=== PATIENT | male | born 1990 | race Hispanic/Latino ===

== ENCOUNTER 2020-12-16 09:38 | Inpatient (IN) | payer SELFPAY ==
[2020-12-16] MEDS ORDERED: Fentanyl 100 MCG/2 ML VIAL ONE ×2 (10:03→12:07)
[2020-12-16] MEDS ORDERED: INSULIN REGULAR IN 0.9 % NACL 100 UNIT/100 ML BAG ONE (10:11)
[2020-12-16 10:27] LABS: Actual Bicarbonate (HCO3v) 18 mEq/L (22-28); Analyzer IN Cardio ER; Base Excess -7.4 mEq/L (-2.0 to +3.0); Calcium, Ionized (venous) 1.02 mmol/L (1.16-1.32); Chloride (VBG) 104 mmol/L (98-106); Hemoglobin (Hb) 15.6 g/dL (13.2-17.3); Potassium (VBG) 4.19 mmol/L (3.70-5.30); Sodium 135.3 mmol/L (133-146)
[2020-12-16] MEDS ORDERED: NS 0.9% w/ 20 MEQ KCL 1,000 ML IV PRN ×2 (10:30)
[2020-12-16] MEDS ORDERED: Sodium Chloride 0.9% 1,000 ML IV PRN ×4 (10:30)
[2020-12-16] MEDS ORDERED: Electrolyte Replacement Protocol 1 EACH IVPB ONE (10:30)
[2020-12-16] MEDS ORDERED: Ondansetron PF 4 MG/2 ML Vial IVP PRN (10:35)
[2020-12-16] MEDS ORDERED: Acetaminophen 325 MG TAB PO PRN (10:35)
[2020-12-16] MEDS ORDERED: Calcium Carbonate 500 MG ChewTAB PO PRN (10:35)
[2020-12-16] MEDS ORDERED: Ondansetron ODT 4 MG TAB PO PRN (10:35)
[2020-12-16] MEDS ORDERED: NS 0.9% w/ 20 MEQ KCL 1,000 ML ONE ×2 (10:51→13:19)
[2020-12-16 10:57] LABS: Anion Gap 22 mmol/L (10-20); BUN (Urea Nitrogen) 6 mg/dL (8.9-20.6); Calc. Creatinine Clearance 0 mL/min (70-130); Carbon Dioxide 12 mmol/L (22-29); Chloride 101 mmol/L (98-107); Glucose 337 mg/dL (70-105); Sodium 131 mmol/L (136-145)
[2020-12-16 11:19] LABS: Hemoglobin A1c 7.8 % (4.0-6.0)
[2020-12-16 11:28] LABS: Magnesium 1.5 mg/dL (1.6-2.6)
[2020-12-16] MEDS ORDERED: Potassium Phosphate 15 MMOL in Sodium Chloride 0.9% 250 ML 250 ML IVPB SCH (14:00)
[2020-12-16] MEDS ORDERED: Magnesium Sulfate 4 GM in Sodium Chloride 0.9% 250 ML 250 ML IVPB SCH (14:00)
[2020-12-16] MEDS ORDERED: Electrolyte Replacement Protocol FS PRN (14:00)
[2020-12-16 14:01] LABS: Glucose 284 mg/dL (70-105)
[2020-12-16 14:11] LABS: Lactic Acid 1.8 mmol/L (0.5-2.2)
[2020-12-16 14:14] LABS: Anion Gap 17 mmol/L (10-20); BUN (Urea Nitrogen) 7 mg/dL (8.9-20.6); Calc. Creatinine Clearance 0 mL/min (70-130); Calcium 7.8 mg/dL (7.8-10.44); Carbon Dioxide 13 mmol/L (22-29); Chloride 103 mmol/L (98-107); Glucose 264 mg/dL (70-105); Potassium 4.3 mmol/L (3.5-5.1); Sodium 129 mmol/L (136-145)
[2020-12-16] MEDS ORDERED: Morphine 2 MG/ML VIAL SLOW IVP PRN (14:25)
[2020-12-16] MEDS ORDERED: Morphine 2 MG/ML VIAL ONE (14:32)
[2020-12-16 15:16] VITALS: BMI 34.4
[2020-12-16] MEDS: D5 1/2 NS w/20 mEq KCL 1,000 ML IV PRN (16:05)
[2020-12-16 17:06] LABS: Glucose 264 mg/dL (70-105)
[2020-12-16 18:27] LABS: Glucose 268 mg/dL (70-105)
[2020-12-16 18:32] LABS: BUN (Urea Nitrogen) 5 mg/dL (8.9-20.6); Calc. Creatinine Clearance 202 mL/min (70-130); Calcium 7.8 mg/dL (7.8-10.44); Chloride 104 mmol/L (98-107); Glucose 267 mg/dL (70-105); Potassium 4.1 mmol/L (3.5-5.1); Sodium 130 mmol/L (136-145)
[2020-12-16 18:35] LABS: Carbon Dioxide Less than 8 mmol/L (22-29)
[2020-12-16] MEDS ORDERED: Meropenem 1 GM in Sodium Chloride 0.9% 100 ML IVPB SCH (18:45)
[2020-12-16] MEDS ORDERED: Sodium Bicarb 50 MEQ/50 ML Abboject 8.4% SYRINGE IVP SCH (18:45)
[2020-12-16] MEDS ORDERED: Sodium Bicarbonate Tab 325 MG TAB PO SCH (19:00)
[2020-12-16] MEDS ORDERED: Sodium Bicarbonate 150 MEQ in Dextrose 5% in Water 1,000 ML IV SCH ×2 (19:30→20:30)
[2020-12-16] MEDS ORDERED: MEROPENEM 1 GM/50 ML 1 GM in Premix Bag 1 BAG IVPB SCH (19:30)
[2020-12-16] MEDS ORDERED: Potassium Chloride 20 MEQ TAB PO SCH (19:30)
[2020-12-16] MEDS: Enoxaparin Sodium 40 MG/0.4 ML SYRINGE SC SCH (19:55)
[2020-12-16] MEDS: Famotidine 20 MG TAB PO SCH (19:55)
[2020-12-16] MEDS: Famotidine/PF 20 mg/2ml Vial SLOW IVP SCH (20:06)
[2020-12-16 20:07] LABS: Glucose 243 mg/dL (70-105)
[2020-12-16] MEDS: HUMULIN R 100 UNITS in Sodium Chloride 0.9% 100 ML IVPB SCH (20:22)
[2020-12-16 20:33] LABS: Glucose 234 mg/dL (70-105)
[2020-12-16 21:27] LABS: Glucose 195 mg/dL (70-105)
[2020-12-16 22:41] LABS: Anion Gap 19 mmol/L (10-20); BUN (Urea Nitrogen) 5 mg/dL (8.9-20.6); Calc. Creatinine Clearance 213 mL/min (70-130); Calcium 7.7 mg/dL (7.8-10.44); Carbon Dioxide 12 mmol/L (22-29); Chloride 104 mmol/L (98-107); Glucose 185 mg/dL (70-105); Potassium 3.9 mmol/L (3.5-5.1); Sodium 131 mmol/L (136-145)
[2020-12-16] MEDS ORDERED: Sodium Bicarb 50 MEQ/50 ML Abboject 8.4% SYRINGE IVP PRN (23:01)
[2020-12-16 23:35] LABS: Glucose 169 mg/dL (70-105)
[2020-12-16 23:38] LABS: Glucose 340 mg/dL (70-105)
[2020-12-16 23:49] LABS: SARS-CoV-2 PCR by NAA Not Detected (NotDetected)
[2020-12-17] MEDS: D5 1/2 NS w/20 mEq KCL 1,000 ML IV PRN ×2 (00:25→15:41)
[2020-12-17 00:32] LABS: Glucose 161 mg/dL (70-105)
[2020-12-17 01:33] LABS: Glucose 153 mg/dL (70-105)
[2020-12-17] MEDS: MEROPENEM 1 GM/50 ML 1 GM in Premix Bag 1 BAG IVPB SCH ×3 (03:34→19:29)
[2020-12-17] MEDS: HUMULIN R 100 UNITS in Sodium Chloride 0.9% 100 ML IVPB SCH ×2 (03:34→15:41)
[2020-12-17 03:55] LABS: Glucose 151 mg/dL (70-105)
[2020-12-17 04:29] LABS: Band 20 % (5-11); Eosinophils 1 % (0-10); Lymphocytes 8 % (21-51); MDiff Complete? YES; Monocytes 1 % (0-10); Neutrophil 70 % (42-75)
[2020-12-17 04:30] LABS: Hemoglobin 14.7 g/dL (14.0-18.0); Mean Corpuscular HGB CONC 35.9 g/dL (32.0-36.0); Mean Corpuscular Volume 89.2 fL (78.0-98.0); Platelet Count 159 thou/uL (130-400); Red Blood Cell (RBC) Count 4.58 mill/uL (4.70-6.10); White Blood Cell (WBC) Count 16.2 thou/uL (4.8-10.8)
[2020-12-17 04:56] LABS: Glucose 182 mg/dL (70-105)
[2020-12-17 05:21] LABS: Calcium 7.7 mg/dL (7.8-10.44); Glucose 181 mg/dL (70-105)
[2020-12-17 05:35] LABS: Magnesium 2.3 mg/dL (1.6-2.6)
[2020-12-17 05:41] LABS: Phosphorus 1.7 mg/dL (2.3-4.7)
[2020-12-17 05:52] LABS: Anion Gap 17 mmol/L (10-20); BUN (Urea Nitrogen) 5 mg/dL (8.9-20.6); Calc. Creatinine Clearance 204 mL/min (70-130); Carbon Dioxide 15 mmol/L (22-29); Chloride 101 mmol/L (98-107); Potassium 5.2 mmol/L (3.5-5.1); Sodium 128 mmol/L (136-145)
[2020-12-17] MEDS ORDERED: PHOS-NAK 1 PKT PACK PO SCH (06:00)
[2020-12-17] MEDS: Dextrose 5 %-0.45 % NaCl 1,000 ML IV PRN ×2 (06:01→10:12)
[2020-12-17] MEDS ORDERED: Sodium Phosphate 15 MMOL in Sodium Chloride 0.9% 250 ML 250 ML IVPB SCH (06:15)
[2020-12-17] MEDS ORDERED: Senokot S 8.6-50 MG TAB PO PRN (07:50)
[2020-12-17] MEDS ORDERED: Loperamide HCl 2 MG CAP PO PRN (07:50)
[2020-12-17] MEDS ORDERED: Bisacodyl 5 MG TAB PO PRN (07:50)
[2020-12-17] MEDS ORDERED: Loratadine 10 MG TAB PO PRN (07:50)
[2020-12-17] MEDS ORDERED: Cepastat Lozenges 1 LOZ PO PRN (07:50)
[2020-12-17] MEDS ORDERED: Sodium Chloride 0.65% Nasal 44 ML BOT EA NARE PRN (07:50)
[2020-12-17] MEDS ORDERED: GUAIFENESIN SF SOLN 200 MG/10 ML UDCUP PO PRN (07:50)
[2020-12-17] MEDS ORDERED: hydrALAZINE 20 MG/ML VIAL SLOW IVP PRN (07:50)
[2020-12-17] MEDS ORDERED: Temazepam 15 MG CAP PO PRN (07:50)
[2020-12-17] MEDS ORDERED: HYDROcodone/Acetaminophen 5/325 mg Tablet PO PRN (07:50)
[2020-12-17 08:00] LABS: Glucose 238 mg/dL (70-105)
[2020-12-17 08:03] LABS: Glucose 241 mg/dL (70-105)
[2020-12-17 08:20] LABS: Anion Gap 18 mmol/L (10-20); BUN (Urea Nitrogen) 4 mg/dL (8.9-20.6); Calc. Creatinine Clearance 206 mL/min (70-130); Calcium 7.8 mg/dL (7.8-10.44); Carbon Dioxide 14 mmol/L (22-29); Chloride 102 mmol/L (98-107); Glucose 231 mg/dL (70-105); Potassium 4.8 mmol/L (3.5-5.1); Sodium 129 mmol/L (136-145)
[2020-12-17 08:52] LABS: Actual Bicarbonate (HCO3v) 22 mEq/L (22-28); Base Excess -1.9 mEq/L (-2.0 to +3.0); Calcium, Ionized (venous) 0.98 mmol/L (1.16-1.32); Chloride (VBG) 102 mmol/L (98-106); Hemoglobin (Hb) 15.4 g/dL (13.2-17.3); Potassium (VBG) 5.67 mmol/L (3.70-5.30); Sodium 130.4 mmol/L (133-146); pH (venous) 7.43 (7.32-7.43)
[2020-12-17] MEDS: Famotidine/PF 20 mg/2ml Vial SLOW IVP SCH ×2 (10:01→19:38)
[2020-12-17] MEDS: Morphine 2 MG/ML VIAL SLOW IVP PRN ×3 (10:02→19:57)
[2020-12-17] MEDS: Famotidine 20 MG TAB PO SCH ×2 (10:21→20:02)
[2020-12-17 11:01] LABS: Chloride 102 mmol/L (98-107); Potassium 4.8 mmol/L (3.5-5.1); Sodium 129 mmol/L (136-145)
[2020-12-17 11:02] LABS: Glucose 214 mg/dL (70-105)
[2020-12-17 11:04] LABS: Anion Gap 18 mmol/L (10-20); Carbon Dioxide 14 mmol/L (22-29)
[2020-12-17 11:05] LABS: Calc. Creatinine Clearance 204 mL/min (70-130)
[2020-12-17 11:06] LABS: BUN (Urea Nitrogen) 4 mg/dL (8.9-20.6)
[2020-12-17 14:51] LABS: Anion Gap 15 mmol/L (10-20); BUN (Urea Nitrogen) 4 mg/dL (8.9-20.6); Calc. Creatinine Clearance 214 mL/min (70-130); Carbon Dioxide 16 mmol/L (22-29); Chloride 101 mmol/L (98-107); Glucose 183 mg/dL (70-105); Potassium 4.3 mmol/L (3.5-5.1); Sodium 128 mmol/L (136-145)
[2020-12-17 15:38] LABS: Actual Bicarbonate (HCO3v) 22 mEq/L (22-28); Base Excess -1.5 mEq/L (-2.0 to +3.0); Calcium, Ionized (venous) 1.07 mmol/L (1.16-1.32); Chloride (VBG) 103 mmol/L (98-106); Hemoglobin (Hb) 14.8 g/dL (13.2-17.3); Potassium (VBG) 3.85 mmol/L (3.70-5.30); Sodium 132.2 mmol/L (133-146); pH (venous) 7.44 (7.32-7.43)
[2020-12-17 18:24] LABS: Anion Gap 13 mmol/L (10-20); BUN (Urea Nitrogen) Less than 4 mg/dL (8.9-20.6); Calc. Creatinine Clearance 214 mL/min (70-130); Calcium 8.3 mg/dL (7.8-10.44); Carbon Dioxide 18 mmol/L (22-29); Chloride 102 mmol/L (98-107); Glucose 169 mg/dL (70-105); Sodium 129 mmol/L (136-145)
[2020-12-17] MEDS: D5 0.9% NS w/ 20 mEq KCl 1,000 ML IV SCH ×2 (19:28→23:10)
[2020-12-17] MEDS: Dextrose 5 % And 0.9 % NaCl 1,000 ML IV SCH ×2 (19:38→23:16)
[2020-12-17] MEDS: Enoxaparin Sodium 40 MG/0.4 ML SYRINGE SC SCH (20:02)
[2020-12-17 22:23] LABS: Anion Gap 14 mmol/L (10-20); BUN (Urea Nitrogen) Less than 4 mg/dL (8.9-20.6); Calc. Creatinine Clearance 214 mL/min (70-130); Calcium 8.2 mg/dL (7.8-10.44); Carbon Dioxide 18 mmol/L (22-29); Chloride 104 mmol/L (98-107); Glucose 163 mg/dL (70-105); Potassium 3.8 mmol/L (3.5-5.1); Sodium 132 mmol/L (136-145)
[2020-12-18] MEDS: HUMULIN R 100 UNITS in Sodium Chloride 0.9% 100 ML IVPB SCH (00:02)
[2020-12-18] MEDS: Dextrose 5 % And 0.9 % NaCl 1,000 ML IV SCH ×2 (03:05→08:05)
[2020-12-18] MEDS: MEROPENEM 1 GM/50 ML 1 GM in Premix Bag 1 BAG IVPB SCH (03:05)
[2020-12-18] MEDS: D5 0.9% NS w/ 20 mEq KCl 1,000 ML IV SCH ×2 (03:05→08:04)
[2020-12-18 03:40] LABS: #Eosinphils 0.1 thou/uL (0.0-0.7); #Lymphocytes 1.4 thou/uL (1.20-3.40); #Monocytes 0.6 thou/uL (0.11-0.59); #Neutrophils 10.3 thou/uL (1.40-6.50); %Basophils 0.1 % (0.0-1.0); %Eosinophils 0.9 % (0.0-10.0); %Lymphocytes 11.3 % (21.0-51.0); %Monocytes 4.9 % (0.0-10.0); %Neutrophils 82.9 % (42.0-75.0); Hemoglobin 13.5 g/dL (14.0-18.0); Mean Corpuscular HGB CONC 34.1 g/dL (32.0-36.0); Mean Corpuscular Hemoglobin 31.2 pg (27.0-31.0); Mean Corpuscular Volume 91.3 fL (78.0-98.0); Platelet Count 123 thou/uL (130-400); RBC Distribution Width 12.1 % (11.5-14.5); Red Blood Cell (RBC) Count 4.33 mill/uL (4.70-6.10); White Blood Cell (WBC) Count 12.4 thou/uL (4.8-10.8)
[2020-12-18 03:42] LABS: Magnesium 1.9 mg/dL (1.6-2.6)
[2020-12-18 03:46] LABS: Phosphorus 1.8 mg/dL (2.3-4.7)
[2020-12-18 03:50] LABS: ALT (SGPT) 31 U/L (8-55); AST (SGOT) 18 U/L (5-34); Albumin 3.1 g/dL (3.5-5.0); Alkaline Phosphatase 76 U/L (40-110); Bilirubin, Direct 0.3 mg/dL (0.1-0.3); Protein, Total 6.4 g/dL (6.0-8.3)
[2020-12-18 03:50] LABS: Lipase 85 U/L (8-78); Triglycerides 497 mg/dL (Less than 150)
[2020-12-18] MEDS ORDERED: Magnesium 2 GM/50 ML 2 GM in Premix Bag 1 BAG IVPB SCH (04:15)
[2020-12-18] MEDS ORDERED: Potassium Phosphate 15 MMOL in Sodium Chloride 0.9% 250 ML 250 ML IVPB SCH (05:00)
[2020-12-18] MEDS ORDERED: Insulin Regular 300 UNITS/3 ML VIAL SC PRN (08:35)
[2020-12-18] MEDS ORDERED: Dextrose 50% Abboject 50 ML SYRINGE SLOW IVP PRN (08:35)
[2020-12-18] MEDS ORDERED: Dextrose 5% in Water 1,000 ML IV PRN (08:35)
[2020-12-18] MEDS ORDERED: Insulin Glargine 10 UNITS in Pre-Filled Syringe 1 EACH SC SCH (09:00)
[2020-12-18] MEDS: Lantus 1000 UNITS/10 ML VIAL SC SCH (09:50)
[2020-12-18] MEDS: Famotidine 20 MG TAB PO SCH ×2 (09:57→20:10)
[2020-12-18] MEDS: 1/2 NS w/KCL 20 mEq 1,000 ML IV SCH ×2 (13:16→22:42)
[2020-12-18] MEDS: Gemfibrozil 600 MG TAB PO SCH (15:50)
[2020-12-18] MEDS: Enoxaparin Sodium 40 MG/0.4 ML SYRINGE SC SCH (20:10)
[2020-12-19] MEDS: 1/2 NS w/KCL 20 mEq 1,000 ML IV SCH (05:21)
[2020-12-19 05:35] LABS: Anion Gap 19 mmol/L (10-20); BUN (Urea Nitrogen) 8 mg/dL (8.9-20.6); Calc. Creatinine Clearance 200 mL/min (70-130); Carbon Dioxide 15 mmol/L (22-29); Chloride 103 mmol/L (98-107); Glucose 194 mg/dL (70-105); Lipase 93 U/L (8-78); Magnesium 1.9 mg/dL (1.6-2.6); Sodium 133 mmol/L (136-145)
[2020-12-19] MEDS: Insulin Regular 300 UNITS/3 ML VIAL SC PRN ×3 (06:15→17:12)
[2020-12-19] MEDS ORDERED: 1/2 NS w/KCL 20 mEq 1,000 ML IV SCH (08:34)
[2020-12-19] MEDS: Gemfibrozil 600 MG TAB PO SCH ×2 (10:13→16:05)
[2020-12-19] MEDS: Sodium Bicarbonate Tab 325 MG TAB PO SCH ×3 (10:13→21:14)
[2020-12-19] MEDS: Lantus 1000 UNITS/10 ML VIAL SC SCH ×2 (10:14→21:15)
[2020-12-19] MEDS: Famotidine 20 MG TAB PO SCH ×2 (10:14→21:14)
[2020-12-20] MEDS: Insulin Regular 300 UNITS/3 ML VIAL SC PRN ×2 (05:10→13:21)
[2020-12-20 06:54] LABS: Anion Gap 19 mmol/L (10-20); BUN (Urea Nitrogen) 13 mg/dL (8.9-20.6); Calc. Creatinine Clearance 181 mL/min (70-130); Calcium 9.4 mg/dL (7.8-10.44); Carbon Dioxide 20 mmol/L (22-29); Chloride 100 mmol/L (98-107); Glucose 244 mg/dL (70-105); Magnesium 1.9 mg/dL (1.6-2.6); Phosphorus 4.5 mg/dL (2.3-4.7); Potassium 4.1 mmol/L (3.5-5.1); Sodium 135 mmol/L (136-145)
[2020-12-20] MEDS: Famotidine 20 MG TAB PO SCH (09:02)
[2020-12-20] MEDS: Gemfibrozil 600 MG TAB PO SCH (09:02)
[2020-12-20] MEDS: Sodium Bicarbonate Tab 325 MG TAB PO SCH (09:02)
[2020-12-20] MEDS: Lantus 1000 UNITS/10 ML VIAL SC SCH (09:03)
[2020-12-20 12:49] VITALS: BP 146/89; TEMP 97.9
== END 2020-12-20 15:30 | disposition home or self-care (01) | DRG 438 ==
LOC: ERS 09:38 → ERHOLD 10:42 → IMCU/EMU 15:24 → 2NO 12-18 16:56 → ONC 12-19 14:55
PROVIDERS: ADMIT Internal Medicine; ATTEND Internal Medicine
DX: K85.80 Other acute pancreatitis without necrosis or infection (principal); E11.10 Type 2 diabetes mellitus with ketoacidosis without coma; E87.1 Hypo-osmolality and hyponatremia; R65.10 Systemic inflammatory response syndrome (SIRS) of non-infectious origin without acute organ dysfunction; E78.1 Pure hyperglyceridemia; E86.0 Dehydration; E11.69 Type 2 diabetes mellitus with other specified complication; K76.0 Fatty (change of) liver, not elsewhere classified; E66.9 Obesity, unspecified; E83.42 Hypomagnesemia; E83.39 Other disorders of phosphorus metabolism; Z20.822 Contact with and (suspected) exposure to COVID-19; Z68.34 Body mass index [BMI] 34.0-34.9, adult
CPT/HCPCS: 36415; 36416; 80048; 80076; 82010; 82805; 83036; 83605; 83690; 83735; 83930; 84100; 84478; 84484; 85025; 86140; 93005; 94760; 96365; 96366; 96375; 96376; J1650; J1815; J2185; J2270; J3010; J3475; J3480; J3490; J7050; J7070; S0028; U0003; U0005

== ENCOUNTER 2023-12-14 11:03 | Inpatient (IN) | payer OTHER ==
[2023-12-14] MEDS ORDERED: Ketorolac Tromethamine 30 MG (1 mL) VIAL IVP PRN (11:19)
[2023-12-14] MEDS ORDERED: Bisacodyl 10 MG SUPP PR PRN (11:19)
[2023-12-14] MEDS ORDERED: Ondansetron PF 4 MG/2 ML Vial IVP PRN (11:19)
[2023-12-14] MEDS ORDERED: Bisacodyl 5 MG TAB PO PRN (11:19)
[2023-12-14] MEDS ORDERED: Senokot S 8.6-50 MG TAB PO PRN (11:19)
[2023-12-14] MEDS ORDERED: Acetaminophen 325 MG TAB PO PRN (11:19)
[2023-12-14] MEDS ORDERED: Dextrose 5% in Water 1,000 ML IV PRN (11:22)
[2023-12-14] MEDS ORDERED: Dextrose 50% Abboject 50 ML SYRINGE SLOW IVP PRN ×2 (11:22→14:30)
[2023-12-14] MEDS ORDERED: Glucagon 1 MG/ML KIT IM PRN (11:22)
[2023-12-14] MEDS ORDERED: Insulin Lispro 100 UNIT/ML 10 ML VIAL SC PRN ×2 (11:49→11:50)
[2023-12-14] MEDS: Morphine 2 MG/ML VIAL SLOW IVP PRN (12:14)
[2023-12-14] MEDS: Sodium Chloride 0.9% 1,000 ML IV SCH (12:15)
[2023-12-14 12:19] VITALS: BMI 33.0
[2023-12-14 13:32] VITALS: BP 154/97
[2023-12-14 13:34] LABS: Hemoglobin A1c 9.9 % (4.0-6.0)
[2023-12-14 14:12] LABS: Cardiac Risk 54.3 (Less than 4.5); Cholesterol 652 mg/dl (< 200 Desired); HDL Cholesterol 12 mg/dL (>60 Neg Risk); Triglycerides 4891 mg/dL (Less than 150)
[2023-12-14] MEDS ORDERED: NS 0.9% w/ 20 MEQ KCL 1,000 ML IV PRN ×2 (14:30)
[2023-12-14] MEDS ORDERED: Dextrose 5 %-0.45 % NaCl 1,000 ML IV PRN (14:30)
[2023-12-14] MEDS ORDERED: Sodium Chloride 0.9% 1,000 ML IV PRN ×4 (14:30)
[2023-12-14] MEDS ORDERED: Electrolyte Replacement Protocol 1 EACH IVPB PRN (14:30)
[2023-12-14 15:35] LABS: INR-International Normal Ratio 0.9; PTT 29.2 sec (22.9-36.1); Prothrombin Time 12.3 sec (12.0-14.7)
[2023-12-14 15:52] LABS: ALT (SGPT) 41 U/L (8-55); AST (SGOT) 26 U/L (5-34); Albumin 3.3 g/dL (3.5-5.0); Alkaline Phosphatase 79 U/L (40-110); Anion Gap 26 mmol/L (10-20); BUN (Urea Nitrogen) 6 mg/dL (8.9-20.6); Bilirubin, Total 1.3 mg/dL (0.2-1.2); Calc. Creatinine Clearance 157 mL/min (70-130); Calcium 8.2 mg/dL (7.8-10.44); Carbon Dioxide 10 mmol/L (22-29); Chloride 98 mmol/L (98-107); Estimated GFR 110; Globulin 5.9 g/dL (2.4-3.5); Glucose 245 mg/dL (70-105); Protein, Total 9.2 g/dL (6.0-8.3); Sodium 130 mmol/L (136-145)
[2023-12-14] MEDS: INSULIN REGULAR IN 0.9 % NACL 100 UNITS in Premix 1 BAG IVPB SCH (16:01)
[2023-12-14] MEDS: Gemfibrozil 600 MG TAB PO SCH (16:01)
[2023-12-14 16:14] LABS: Actual Bicarbonate (HCO3v) 24.5 mEq/L (22-28); Base Excess 0.6 mEq/L (-2.0 to +3.0); Calcium, Ionized (venous) 0.99 mmol/L (1.16-1.32); Chloride (VBG) 100 mmol/L (98-106); Hematocrit-VBG 45 % (42.0-52.0); Hemoglobin (Hb) 15.2 g/dL (13.2-17.3); Potassium (VBG) 3.76 mmol/L (3.70-5.30); Sodium 137 mmol/L (133-146); pH (venous) 7.435 (7.32-7.43)
[2023-12-14 16:15] LABS: Hematocrit 40.7 % (42.0-52.0); Hemoglobin 15.9 g/dL (14.0-18.0); Mean Corpuscular HGB CONC 39.1 g/dL (32.0-36.0); Mean Corpuscular Hemoglobin 34.2 pg (27.0-31.0); Mean Corpuscular Volume 87.5 fL (78.0-98.0); Mean Platelet Volume 11.5 fL (7.4-10.4); Platelet Count 176 10x3/uL (130-400); RBC Distribution Width 12.6 % (11.5-14.5); Red Blood Cell (RBC) Count 4.65 mill/uL (4.70-6.10)
[2023-12-14] MEDS: D5 1/2 NS w/20 mEq KCL 1,000 ML IV PRN (17:41)
[2023-12-14 19:04] LABS: Glucose 229 mg/dL (70-105)
[2023-12-14] MEDS ORDERED: fentaNYL 50 mcg/mL 1 mL Vial SLOW IVP SCH (19:55)
[2023-12-14 20:04] LABS: Base Excess -0.8 mEq/L (-2.0 to +3.0); Calcium, Ionized (venous) 0.99 mmol/L (1.16-1.32); Chloride (VBG) 100 mmol/L (98-106); Hematocrit-VBG 46 % (42.0-52.0); Hemoglobin (Hb) 15.7 g/dL (13.2-17.3); Potassium (VBG) 3.72 mmol/L (3.70-5.30); Sodium 136 mmol/L (133-146); pH (venous) 7.427 (7.32-7.43)
[2023-12-14 20:28] LABS: Lactic Acid 2.2 mmol/L (0.5-2.2)
[2023-12-14 20:36] LABS: Anion Gap 27 mmol/L (10-20); BUN (Urea Nitrogen) 7 mg/dL (8.9-20.6); Calc. Creatinine Clearance 172 mL/min (70-130); Calcium 7.8 mg/dL (7.8-10.44); Carbon Dioxide Less than 8 mmol/L (22-29); Chloride 99 mmol/L (98-107); Estimated GFR 118; Glucose 234 mg/dL (70-105); Potassium 3.7 mmol/L (3.5-5.1); Sodium 129 mmol/L (136-145)
[2023-12-14 20:48] LABS: Anion Gap 25 mmol/L (10-20); BUN (Urea Nitrogen) 7 mg/dL (8.9-20.6); Calc. Creatinine Clearance 154 mL/min (70-130); Calcium 7.9 mg/dL (7.8-10.44); Carbon Dioxide Less than 8 mmol/L (22-29); Chloride 100 mmol/L (98-107); Estimated GFR 108; Glucose 233 mg/dL (70-105); Potassium 3.7 mmol/L (3.5-5.1); Sodium 129 mmol/L (136-145)
[2023-12-14] MEDS: fentaNYL 50 mcg/mL 1 mL Vial SLOW IVP SCH (20:57)
[2023-12-14 20:58] LABS: Triglycerides 3117 mg/dL (Less than 150)
[2023-12-14] MEDS: Pantoprazole 40 MG VIAL IVP SCH (21:01)
[2023-12-14] MEDS: Sodium Bicarbonate 150 MEQ in Dextrose 5% in Water 1,000 ML IV SCH (21:21)
[2023-12-15] MEDS: Morphine 4 MG/ML VIAL SLOW IVP PRN (00:34)
[2023-12-15 00:44] LABS: Anion Gap 23 mmol/L (10-20); BUN (Urea Nitrogen) 7 mg/dL (8.9-20.6); Calc. Creatinine Clearance 176 mL/min (70-130); Calcium 7.8 mg/dL (7.8-10.44); Carbon Dioxide 12 mmol/L (22-29); Chloride 99 mmol/L (98-107); Estimated GFR 119; Glucose 212 mg/dL (70-105); Potassium 3.9 mmol/L (3.5-5.1); Sodium 130 mmol/L (136-145)
[2023-12-15 02:19] LABS: Glucose 229 mg/dL (70-105)
[2023-12-15 04:30] LABS: Hemoglobin 15.1 g/dL (14.0-18.0); Mean Corpuscular Hemoglobin 31.3 pg (27.0-31.0); Mean Corpuscular Volume 87.1 fL (78.0-98.0); Mean Platelet Volume 11.3 fL (7.4-10.4); Platelet Count 173 10x3/uL (130-400); RBC Distribution Width 12.8 % (11.5-14.5); Red Blood Cell (RBC) Count 4.82 mill/uL (4.70-6.10)
[2023-12-15 05:02] LABS: Base Excess 1.3 mEq/L (-2.0 to +3.0); Calcium, Ionized (venous) 0.85 mmol/L (1.16-1.32); Chloride (VBG) 97 mmol/L (98-106); Hematocrit-VBG 46 % (42.0-52.0); Hemoglobin (Hb) 15.8 g/dL (13.2-17.3); Potassium (VBG) 3.84 mmol/L (3.70-5.30); Sodium 133 mmol/L (133-146); pH (venous) 7.514 (7.32-7.43)
[2023-12-15 06:07] LABS: Band 20 % (5-11); Lymphocytes 11 % (21-51); Myelocyte 1 % (0-0); Neutrophil 68 % (42-75); Platelet Adequacy Comment Platelets Normal; RBC Morphology Within Normal Limits; Smudge Cells 6.8 %
[2023-12-15 07:53] LABS: ALT (SGPT) 32 U/L (8-55); AST (SGOT) 41 U/L (5-34); Albumin 2.6 g/dL (3.5-5.0); Alkaline Phosphatase 66 U/L (40-110); Anion Gap 18 mmol/L (10-20); BUN (Urea Nitrogen) 9 mg/dL (8.9-20.6); Bilirubin, Total 1.2 mg/dL (0.2-1.2); Calc. Creatinine Clearance 146 mL/min (70-130); Calcium 7.5 mg/dL (7.8-10.44); Carbon Dioxide 21 mmol/L (22-29); Chloride 96 mmol/L (98-107); Estimated GFR 101; Globulin 4.7 g/dL (2.4-3.5); Glucose 195 mg/dL (70-105); Magnesium 1.6 mg/dL (1.6-2.6); Protein, Total 7.3 g/dL (6.0-8.3); Sodium 131 mmol/L (136-145)
[2023-12-15] MEDS: Sodium Bicarbonate 150 MEQ in Dextrose 5% in Water 1,000 ML IV SCH (10:05)
[2023-12-15] MEDS: Magnesium 2 GM/50 ML(in water) 2 GM in Premix 1 BAG IVPB SCH (10:08)
[2023-12-15] MEDS: Pantoprazole 40 MG VIAL IVP SCH (10:10)
[2023-12-15] MEDS: Enoxaparin 40 MG (0.4 mL) SYRINGE SC SCH (10:13)
[2023-12-15 12:22] LABS: Anion Gap 13 mmol/L (10-20); BUN (Urea Nitrogen) 10 mg/dL (8.9-20.6); Calc. Creatinine Clearance 167 mL/min (70-130); Calcium 7.7 mg/dL (7.8-10.44); Carbon Dioxide 26 mmol/L (22-29); Chloride 96 mmol/L (98-107); Estimated GFR 117; Glucose 153 mg/dL (70-105); Potassium 3.2 mmol/L (3.5-5.1); Sodium 132 mmol/L (136-145)
[2023-12-15] MEDS: Potassium Chloride 20 MEQ TAB PO SCH (12:48)
[2023-12-16 06:34] LABS: Anion Gap 9 mmol/L (10-20); BUN (Urea Nitrogen) 10 mg/dL (8.9-20.6); Calc. Creatinine Clearance 173 mL/min (70-130); Calcium 8.2 mg/dL (7.8-10.44); Carbon Dioxide 29 mmol/L (22-29); Chloride 95 mmol/L (98-107); Estimated GFR 117; Glucose 158 mg/dL (70-105); Potassium 3.1 mmol/L (3.5-5.1); Sodium 130 mmol/L (136-145); Triglycerides 849 mg/dL (Less than 150)
[2023-12-16] MEDS: Potassium Chloride 20 MEQ TAB PO SCH (08:56)
[2023-12-16] MEDS: Sodium Chloride 0.9% 1,000 ML IV SCH (08:57)
[2023-12-16] MEDS: D5 1/2 NS w/20 mEq KCL 1,000 ML IV SCH (14:12)
[2023-12-17 10:29] LABS: Anion Gap 15 mmol/L (10-20); BUN (Urea Nitrogen) 9 mg/dL (8.9-20.6); Calc. Creatinine Clearance 180 mL/min (70-130); Calcium 8.4 mg/dL (7.8-10.44); Carbon Dioxide 22 mmol/L (22-29); Chloride 102 mmol/L (98-107); Estimated GFR 119; Glucose 214 mg/dL (70-105); Phosphorus 2.9 mg/dL (2.3-4.7); Potassium 4.1 mmol/L (3.5-5.1); Sodium 135 mmol/L (136-145)
[2023-12-18 04:34] LABS: Anion Gap 16 mmol/L (10-20); BUN (Urea Nitrogen) 8 mg/dL (8.9-20.6); Calc. Creatinine Clearance 185 mL/min (70-130); Calcium 9.4 mg/dL (7.8-10.44); Carbon Dioxide 17 mmol/L (22-29); Chloride 103 mmol/L (98-107); Estimated GFR 120; Glucose 229 mg/dL (70-105); Potassium 3.9 mmol/L (3.5-5.1); Sodium 132 mmol/L (136-145); Triglycerides 463 mg/dL (Less than 150)
[2023-12-18 08:30] VITALS: TEMP 97.4
[2023-12-18] MEDS: Insulin Glargine 30 UNITS/0.3 ML VIAL SC SCH (09:55)
[2023-12-19] MEDS ORDERED: Insulin Glargine 30 UNITS/0.3 ML VIAL SC SCH (09:00)
== END 2023-12-18 13:00 | disposition home or self-care (01) | DRG 439 ==
LOC: T4-A 11:03 → IMCU/EMU 15:10
PROVIDERS: ADMIT Student in an Organized Health Care Education/Training Program; ATTEND Internal Medicine
DX: K85.90 Acute pancreatitis without necrosis or infection, unspecified (principal); E87.1 Hypo-osmolality and hyponatremia; E87.20 Acidosis, unspecified; E87.6 Hypokalemia; E78.1 Pure hyperglyceridemia; E11.9 Type 2 diabetes mellitus without complications; E86.0 Dehydration; K76.0 Fatty (change of) liver, not elsewhere classified; Z79.899 Other long term (current) drug therapy; Z79.1 Long term (current) use of non-steroidal anti-inflammatories (NSAID)
CPT/HCPCS: 36415; 36416; 80048; 80061; 82805; 83036; 83605; 83690; 83735; 84100; 84443; 84478; 85025; 85610; 85730; 86850; 86900; 86901; C9113; J1650; J1815; J2270; J2272; J3010; J3475; J3480; J7050; J7070